=== PATIENT | male | born 1960 | race Hispanic/Latino ===

== ENCOUNTER 2020-09-04 07:41 | Inpatient (IN) | payer BC, OTHER ==
[2020-09-04] MEDS ORDERED: ACETAMINOPHEN 325 MG TABLET ONE (09:19)
[2020-09-04] MEDS ORDERED: LEVALBUTEROL 1.25 MG/3 ML NEB ONE (09:19)
[2020-09-04] MEDS ORDERED: dexAMETHasone 10 MG/ML VIAL ONE (09:19)
[2020-09-04 09:27] LABS: Absolute Lymphocytes (CBC) 0.3 K/uL (0.7-4.9); Basophils % 0.4 % (0-1.3); Hematocrit 44.1 % (39.6-49.0); Lymphocytes % 13.4 % (15.3-44.8); MPV 9.7 fL (7.6-11.3); RBC Red Blood Cell Count 4.76 M/uL (4.33-5.43)
[2020-09-04] MEDS ORDERED: IVERMECTIN 3 MG TABLET PO ONE (09:30)
[2020-09-04 09:34] LABS: Protime INR 1.12
[2020-09-04 09:39] LABS: Bilirubin Direct 0.5 mg/dL (0-0.2); C-Reactive Protein 73.9 mg/L (<3.00); Potassium 4.1 mmol/L (3.5-5.1); Protein, Total 7.4 g/dL (6.4-8.2); Troponin (Emerg Dept Use Only) 0.02 ng/mL (0.0-0.045)
[2020-09-04 10:11] LABS: Urine Blood TRACE (NEG); Urine Glucose NEGATIVE (NEG); Urine Protein 3+ (NEG); Urine Specific Gravity >1.030 (1.005-1.030)
[2020-09-04 10:24] LABS: Urine Bacteria 20-50 /HPF (NONE SEEN); Urine RBC <5 /HPF (NONE SEEN)
[2020-09-04 10:26] LABS: Blood Morphology Comment NOT SEEN (NOT SEEN); Platelet Estimate DECR
[2020-09-04 10:27] LABS: White Blood Cell Scan OK (OK)
[2020-09-04] MEDS ORDERED: CEFTRIAXONE/SWI 1gm 1 GM/10 ML SYR ONE (10:28)
--- NOTE | 2020-09-04 11:51 | RAD REPORT ---
EXAM DESCRIPTION: Anabelle Single View09/04/2020 10:22 am CLINICAL HISTORY: Cough COMPARISON: none FINDINGS: Moderate left and [id number] right pulmonary opacities The heart is normal size IMPRESSION: Bilateral pulmonary opacities probably pneumonia
--- NOTE | 2020-09-04 12:04 | ER ---
Nurse's Notes [facility] Name: Campbell Cox Sr Age: 60 yrs Sex: Male : 1960 Arrival Date: 09/04/2020 Time: 07:48 Bed 25 Private MD: Diagnosis: SARS-associated coronavirus as the cause of diseases classified elsewhere;Acute respiratory failure with hypoxia;Coronavirus infection, unspecified Presentation: 09/04 08:05 Chief complaint: Patient states: tested positive for COVID-19 08/27/20. Reports aa5 increased SOB, headache,and cough. Coronavirus screen: cough unrelated to allergies, headache, shortness of breath. Ebola Screen: Patient negative for fever greater than or equal to 101.5 degrees Fahrenheit, and additional compatible Ebola Virus Disease symptoms. Initial Sepsis Screen: Does the patient meet any 2 criteria? No. Patient's initial sepsis screen is negative. Does the patient have a suspected source of infection? Yes:. Risk Assessment: Do you want to hurt yourself or someone else? Patient reports no desire to harm self or others. Onset of symptoms was August 2020. 08:05 Method Of Arrival: Ambulatory aa5 08:05 Acuity: EUNICE 2 aa5 Triage Assessment: 08:15 Respiratory: the patient has mild shortness of breath. rb3 08:15 Respiratory: Onset: The symptoms/episode began/occurred x 1 week ago. rb3 Historical: - Allergies: 08:07 No Known Allergies; aa5 - PMHx: 08:07 Diabetes - NIDDM; aa5 - PSHx: 08:07 Lithotripsy; aa5 - Immunization history:: Adult Immunizations unknown. - Social history:: Smoking status: Patient denies any tobacco usage or history of. Screenin:15 Abuse screen: Denies threats or abuse. Nutritional screening: No deficits noted. rb3 Tuberculosis screening: No symptoms or risk factors identified. Fall Risk None identified. Assessment: 08:15 General: Appears in no apparent distress. comfortable, Behavior is calm, cooperative. rb3 Pain: Complains of pain in chest Pain currently is 7 out of 10 on a pain scale. Neuro: Level of Consciousness is awake, alert, obeys commands, Oriented to person, place, time, situation. Cardiovascular: Patient's skin is warm and dry. Respiratory: Reports shortness of breath cough that is Airway is patent Respiratory effort is even, unlabored, Respiratory pattern is regular, symmetrical. GI: Reports nausea. : No signs and/or symptoms were reported regarding the genitourinary system. 08:15 General: Reports fever for. rb3 09:15 Reassessment: Patient appears in no apparent distress at this time. No changes from rb3 previously documented assessment. 10:13 Reassessment: Patient appears in no apparent distress at this time. Patient and/or rb3 family updated on plan of care and expected duration. Pain level reassessed. Patient is alert, oriented x 3, equal unlabored respirations, skin warm/dry/pink. 11:11 Reassessment: Patient appears in no apparent distress at this time. No changes from rb3 previously documented assessment. 12:00 Reassessment: Patient appears in no apparent distress at this time. Patient and/or rb3 family updated on plan of care and expected duration. Pain level reassessed. Patient is alert, oriented x 3, equal unlabored respirations, skin warm/dry/pink. 13:00 Reassessment: Patient appears in no apparent distress at this time. No changes from rb3 previously documented assessment. 14:00 Reassessment: Patient appears in no apparent distress at this time. Patient and/or rb3 family updated on plan of care and expected duration. Pain level reassessed. Patient is alert, oriented x 3, equal unlabored respirations, skin warm/dry/pink. Pt. is watching TV. 15:00 Reassessment: Patient appears in no apparent distress at this time. No changes from rb3 previously documented assessment. 15:48 Reassessment: Gave report to JOSE RAFAEL Hatch. Information from the SBAR was given. All rb3 questions asked and answered. 16:00 Reassessment: Patient appears in no apparent distress at this time. Patient and/or rb3 family updated on plan of care and expected duration. Pain level reassessed. Patient is alert, oriented x 3, equal unlabored respirations, skin warm/dry/pink. Vital Signs: 08:05 BP 110 / 70; Pulse 85; Resp 20 S; Temp 100.1(O); Pulse Ox 87% on R/A; Weight 78.47 kg aa5 (R); Height 6 ft. 0 in. (182.88 cm) (R); 09:00 BP 122 / 70; Pulse 75; Resp 20; Pulse Ox 92% on 3 lpm NC; rb3 10:05 BP 124 / 67; Pulse 93; Resp 36; Pulse Ox 93% on 3 lpm NC; mh5 10:12 Temp 99(O); rb3 11:00 BP 120 / 70; Pulse 83; Resp 23; Pulse Ox 93% ; rb3 12:00 BP 115 / 68; Pulse 76; Resp 29; Pulse Ox 94% on 3 lpm NC; rb3 13:00 BP 118 / 70; Pulse 75; Resp 33; Pulse Ox 95% on 3 lpm NC; rb3 14:00 BP 120 / 70; Pulse 77; Resp 21; Pulse Ox 94% on 3 lpm NC; rb3 15:00 BP 117 / 66; Pulse 70; Resp 26; Pulse Ox 94% on 3 lpm NC; rb3 15:45 BP 119 / 75; Pulse 84; Resp 26; Temp 98.4; Pulse Ox 94% on 3 lpm NC; rb3 08:05 Body Mass Index 23.46 (78.47 kg, 182.88 cm) aa5 ED Course: 07:48 Patient arrived in ED. ag5 08:05 Arm band placed on. aa5 08:07 Triage completed. aa5 08:14 Douglas Cassidy MD is Attending Physician. kdr 08:15 Patient has correct armband on for positive identification. Bed in low position. Call rb3 light in reach. Side rails up X 1. Pulse ox on. NIBP on. 08:23 Debbie Sanchez, RN is Primary Nurse. rb3 09:15 Initial lab(s) drawn, by hi, sent to lab. First set of blood cultures drawn by me, [facility] Second set of blood cultures drawn by ED staff. 09:25 Ferritin Sent. 5 09:25 D-Dimer Sent. 5 09:25 C-Reactive Protein Sent. 5 09:25 CBC with Automated Diff Sent. 5 09:25 Basic Metabolic Panel Sent. 5 09:25 Blood Culture Sent. 5 09:26 Inserted saline lock: 20 gauge in left antecubital area, using aseptic technique. Blood [facility] collected. 09:29 Flu and/or RSV swab sent to lab. Strep swab sent to lab. 5 09:30 Pillow given. monitoring tech on. Pulse ox on. NIBP on. 5 09:31 Blood Culture Adult (2) Sent. 5 09: BMP Sent. 5 : C-Reactive Protein Sent. 5 :32 CBC with Diff Sent. 5 09:32 D-Dimer Sent. 5 09:32 Ferritin Sent. [facility] 10:03 Urine Microscopic Only Sent. [facility] 10:04 Urine collected: clean catch specimen, tea colored, EKG done, by ED staff, reviewed by 5 Douglas Cassidy MD. 10:19 X-ray completed. Portable x-ray completed in exam room. Patient tolerated procedure [facility] well. 10:21 CXR XRAY In Process Unspecified. EDMS 12:03 Sathya Mejia MD is Hospitalizing Provider. kdr 16:00 No provider procedures requiring assistance completed. Patient admitted, IV remains in rb3 place. Administered Medications: 09:10 Drug: Tylenol 650 mg Route: PO; rb3 10:12 Follow up: Response: No adverse reaction; Temperature is decreased rb3 09:10 Drug: Decadron - Dexamethasone 6 mg Route: IVP; Site: left antecubital; rb3 09:25 Follow up: Response: No adverse reaction rb3 09:10 Drug: Xopenex (3) 1.25 mg Route: Inhalation; rb3 10:15 Not Given (Changed order to IVP): Rocephin - (cefTRIAXone) 1 grams IVPB once over 30 rb3 mins; (mix in 50 mL NS) 10:25 Drug: Ivermectin 200 mcg/kg Route: PO; rb3 11:05 Follow up: Response: No adverse reaction rb3 10:25 Drug: Rocephin 1 grams Route: IV; Rate: calculated rate; Site: left antecubital; rb3 10:40 Follow up: Response: No adverse reaction; IV Status: Completed infusion rb3 Outcome: 12:04 Decision to Hospitalize by Provider. kdr 16:00 Admitted to Tele accompanied by tech, via stretcher, room 430, with oxygen, with chart, rb3 Report called to JOSE RAFAEL Hatch 16:00 Condition: stable 16:00 Instructed on the need for admit. 16:05 Patient left the ED. rb3 Signatures: Dispatcher [employer] EDNE Douglas Cassidy MD MD [facility] Dominique Monzon [facility] Ivone Ramos RN RN aa5 Gabriela Simental 5 Jolene Hicks [facility] Debbie Sanchez RN RN rb3 Corrections: (The following items were deleted from the chart) 08:29 08:05 Acuity: EUNICE 3 aa5 aa5 16:38 16:37 Patient left the ED. rb3 rb3
--- NOTE | 2020-09-04 12:04 | EDPHYS ---
Physician Documentation [facility] Name: Campbell Cox Sr Age: 60 yrs Sex: Male : 1960 Arrival Date: 09/04/2020 Time: 07:48 Bed 25 Private MD: ED Physician Douglas Cassidy HPI: 09/04 09:00 This 60 yrs old Male presents to ER via Ambulatory with complaints of kdr Breathing Difficulty, Headache. 09:00 The patient has shortness of breath at rest, with light activity. Onset: The kdr symptoms/episode began/occurred gradually, 10 day(s) ago. Duration: The symptoms are continuous, and are steadily getting worse. The patient's shortness of breath is aggravated by coughing, exertion, light activity, talking, walking. Associated signs and symptoms: Pertinent positives: productive cough, Pertinent negatives: chest pain, diaphoresis, dizziness, fever, hemoptysis, loss of consciousness, nausea, numbness in extremities, visual changes. Severity of symptoms: At their worst the symptoms were mild in the emergency department the symptoms are unchanged. The patient has not experienced similar symptoms in the past. The patient has been recently seen by a physician: the patient's primary care provider. The patient has been feeling more SOB over the last few days. Historical: - Allergies: 08:07 No Known Allergies; aa5 - PMHx: 08:07 Diabetes - NIDDM; aa5 - PSHx: 08:07 Lithotripsy; aa5 - Immunization history:: Adult Immunizations unknown. - Social history:: Smoking status: Patient denies any tobacco usage or history of. ROS: 09:07 Constitutional: Negative for fever, chills, and weight loss, Eyes: Negative for injury, kdr pain, redness, and discharge, ENT: Negative for injury, pain, and discharge, Neck: Negative for injury, pain, and swelling, Cardiovascular: Negative for chest pain, palpitations, and edema, Abdomen/GI: Negative for abdominal pain, nausea, vomiting, diarrhea, and constipation, Back: Negative for injury and pain, : Negative for injury, bleeding, discharge, and swelling, MS/Extremity: Negative for injury and deformity, Skin: Negative for injury, rash, and discoloration, Neuro: Negative for headache, weakness, numbness, tingling, and seizure activity. Psych: Negative for depression, anxiety, suicide ideation, homicidal ideation, and hallucinations, Allergy/Immunology: Negative for hives, rash, and allergies, Endocrine: Negative for neck swelling, polydipsia, polyuria, polyphagia, and marked weight changes, Hematologic/Lymphatic: Negative for swollen nodes, abnormal bleeding, and unusual bruising. 09:07 Respiratory: Positive for cough, with no reported sputum, dyspnea on exertion, shortness of breath, at rest. wheezing, expiratory. Exam: 09:07 Constitutional: This is a well developed, well nourished patient who is awake, alert, kdr and in no acute distress. Head/Face: Normocephalic, atraumatic. Eyes: Pupils equal round and reactive to light, extra-ocular motions intact. Lids and lashes normal. Conjunctiva and sclera are non-icteric and not injected. Cornea within normal limits. Periorbital areas with no swelling, redness, or edema. Neck: Trachea midline, no thyromegaly or masses palpated, and no cervical lymphadenopathy. Supple, full range of motion without nuchal rigidity, or vertebral point tenderness. No Meningismus. Chest/axilla: Normal chest wall appearance and motion. Nontender with no deformity. No lesions are appreciated. Cardiovascular: Regular rate and rhythm with a normal S1 and S2. No gallops, murmurs, or rubs. Normal PMI, no JVD. No pulse deficits. Abdomen/GI: Soft, non-tender, with normal bowel sounds. No distension or tympany. No guarding or rebound. No evidence of tenderness throughout. Back: No spinal tenderness. No costovertebral tenderness. Full range of motion. Skin: Warm, dry with normal turgor. Normal color with no rashes, no lesions, and no evidence of cellulitis. MS/ Extremity: Pulses equal, no cyanosis. Neurovascular intact. Full, normal range of motion. Neuro: Awake and alert, GCS 15, oriented to person, place, time, and situation. Cranial nerves II-XII grossly intact. Motor strength 5/5 in all extremities. Sensory grossly intact. Cerebellar exam normal. Normal gait. Psych: Awake, alert, with orientation to person, place and time. Behavior, mood, and affect are within normal limits. 09:07 Respiratory: the patient does not display signs of respiratory distress, Respirations: normal, Breath sounds: rales, that are mild, wheezing: expiratory that is mild. 10:16 ECG was reviewed by the Attending Physician. kdr Vital Signs: 08:05 BP 110 / 70; Pulse 85; Resp 20 S; Temp 100.1(O); Pulse Ox 87% on R/A; Weight 78.47 kg aa5 (R); Height 6 ft. 0 in. (182.88 cm) (R); 09:00 BP 122 / 70; Pulse 75; Resp 20; Pulse Ox 92% on 3 lpm NC; rb3 10:05 BP 124 / 67; Pulse 93; Resp 36; Pulse Ox 93% on 3 lpm NC; mh5 10:12 Temp 99(O); rb3 11:00 BP 120 / 70; Pulse 83; Resp 23; Pulse Ox 93% ; rb3 12:00 BP 115 / 68; Pulse 76; Resp 29; Pulse Ox 94% on 3 lpm NC; rb3 13:00 BP 118 / 70; Pulse 75; Resp 33; Pulse Ox 95% on 3 lpm NC; rb3 14:00 BP 120 / 70; Pulse 77; Resp 21; Pulse Ox 94% on 3 lpm NC; rb3 15:00 BP 117 / 66; Pulse 70; Resp 26; Pulse Ox 94% on 3 lpm NC; rb3 15:45 BP 119 / 75; Pulse 84; Resp 26; Temp 98.4; Pulse Ox 94% on 3 lpm NC; rb3 08:05 Body Mass Index 23.46 (78.47 kg, 182.88 cm) aa5 MDM: 09:07 Data reviewed: vital signs, nurses notes, lab test result(s), radiologic studies. kdr Counseling: I had a detailed discussion with the patient and/or guardian regarding: the historical points, exam findings, and any diagnostic results supporting the discharge/admit diagnosis, lab results, radiology results. 12:04 Patient medically screened. kdr 09/04 08:26 Order name: Blood Culture Adult (2) kdr 09/04 08:26 Order name: BMP kdr 09/04 08:26 Order name: C-Reactive Protein kdr 09/04 08:26 Order name: CBC with Diff kdr 09/04 08:26 Order name: D-Dimer kdr 09/04 08:26 Order name: Ferritin kdr 09/04 08:26 Order name: Flu; Complete Time: 09:54 kdr 09/04 08:26 Order name: Lactate; Complete Time: 09:54 kdr 09/04 08:26 Order name: LFT's; Complete Time: 09:54 kdr 09/04 08:26 Order name: Lipase; Complete Time: 09:54 kdr 09/04 08:26 Order name: Procalcitonin; Complete Time: 12:02 kdr 09/04 08:26 Order name: PT-INR; Complete Time: 09:54 kdr 09/04 08:26 Order name: Ptt, Activated; Complete Time: 09:54 kdr 09/04 08:26 Order name: Strep; Complete Time: 09:54 kdr 09/04 08:26 Order name: Troponin (emerg Dept Use Only); Complete Time: 09:54 kdr 09/04 08:26 Order name: Urine Microscopic Only; Complete Time: 12:02 kdr 09/04 08:26 Order name: Blood Culture EDMS 09/04 08:26 Order name: Basic Metabolic Panel; Complete Time: 09:54 EDMS 09/04 08:26 Order name: C-Reactive Protein; Complete Time: 09:54 EDMS 09/04 08:26 Order name: CBC with Automated Diff; Complete Time: 12:02 EDMS 09/04 08:26 Order name: D-Dimer; Complete Time: 09:54 EDMS 09/04 08:27 Order name: Ferritin; Complete Time: 09:54 EDMS 09/04 09:31 Order name: CBC Smear Scan; Complete Time: 12:02 EDMS 09/04 09:44 Order name: Throat Culture EDMS 09/04 10:05 Order name: Urine Dipstick--Ancillary (enter results); Complete Time: 12:02 em1 09/04 10:25 Order name: Urine Culture EDMS 09/04 12:17 Order name: C-Reactive Protein EDMS 09/04 12:17 Order name: C-Reactive Protein EDMS 09/04 12:17 Order name: CBC with Automated Diff EDMS 09/04 08:26 Order name: CXR XRAY; Complete Time: 12:02 kdr 09/04 08:26 Order name: EKG; Complete Time: 08:27 kdr 09/04 08:26 Order name: Cardiac monitoring; Complete Time: 09:26 kdr 09/04 08:26 Order name: Droplet/Contact Precautions; Complete Time: 09:26 kdr 09/04 08:26 Order name: EKG - Nurse/Tech; Complete Time: 10:03 kdr 09/04 08:26 Order name: Dixon; Complete Time: 10:15 kdr 09/04 08:26 Order name: IV Start; Complete Time: 09:26 kdr 09/04 08:26 Order name: Labs collected and sent; Complete Time: 09: kdr 09/04 08:26 Order name: O2 Per Protocol; Complete Time: 09:32 kdr 09/04 08:26 Order name: O2 Sat Monitoring; Complete Time: 09:33 kdr 09/04 12:17 Order name: CONS Pharmacy Consult [facility] 09/04 12:17 Order name: CONS Physician Consult [facility] 09/04 12:17 Order name: CBC with Automated Diff [facility] 09/04 12:17 Order name: Comprehensive Metabolic Panel [facility] 09/04 12:17 Order name: Comprehensive Metabolic Panel [facility] 09/04 12:17 Order name: D-Dimer [facility] 09/04 12:17 Order name: D-Dimer [facility] 09/04 12:17 Order name: Ferritin [facility] 09/04 12:17 Order name: Ferritin [facility] 09/04 12:17 Order name: Lipid Profile [facility] 09/04 12:17 Order name: Lipid Profile [facility] 09/04 12:17 Order name: Protime (+INR) [facility] 09/04 12:17 Order name: Protime (+INR) [facility] 09/04 12:17 Order name: PTT, Activated Partial Thromb [facility] 09/04 12:17 Order name: PTT, Activated Partial Thromb [facility] 09/04 12:55 Order name: Lactate Sepsis 2 HR Follow-up [facility] 09/04 08:26 Order name: Urine Dipstick-Ancillary (obtain specimen); Complete Time: 10:03 kdr EC:16 Rate is 90 beats/min. Rhythm is regular, Sinus Rhythm with No ectopy, Right bundle kdr branch block. SD interval is normal. QRS interval is normal. QT interval is normal. Clinical impression: NSR w/ Non-specific ST/T Changes. Administered Medications: 09:10 Drug: Tylenol 650 mg Route: PO; rb3 10:12 Follow up: Response: No adverse reaction; Temperature is decreased rb3 09:10 Drug: Decadron - Dexamethasone 6 mg Route: IVP; Site: left antecubital; rb3 09:25 Follow up: Response: No adverse reaction rb3 09:10 Drug: Xopenex (3) 1.25 mg Route: Inhalation; rb3 10:15 Not Given (Changed order to IVP): Rocephin - (cefTRIAXone) 1 grams IVPB once over 30 rb3 mins; (mix in 50 mL NS) 10:25 Drug: Ivermectin 200 mcg/kg Route: PO; rb3 11:05 Follow up: Response: No adverse reaction rb3 10:25 Drug: Rocephin 1 grams Route: IV; Rate: calculated rate; Site: left antecubital; rb3 10:40 Follow up: Response: No adverse reaction; IV Status: Completed infusion rb3 Disposition: 09/04/20 12:04 Hospitalization ordered by Sathya Mejia for Inpatient Admission. Preliminary diagnosis are SARS-associated coronavirus as the cause of diseases classified elsewhere, Acute respiratory failure with hypoxia, Coronavirus infection, unspecified. - Bed requested for Telemetry/MedSurg (Inpatient). - Status is Inpatient Admission. rb3 - Condition is Fair. - Problem is an ongoing problem. - Symptoms have improved. Signatures: Dispatcher [employer] Ginger Silver RN RN dw Douglas Cassidy MD MD [facility] Ivone Ramos RN RN aa5 Debbie Sanchez, JOSE RAFAEL RN rb3 Corrections: (The following items were deleted from the chart) 10:17 10:17 Dixon ordered. rb3 rb3 15:34 12:04 Hospitalization Ordered by Sathya Mejia MD for Inpatient Admission. Preliminary dw diagnosis is SARS-associated coronavirus as the cause of diseases classified elsewhere; Acute respiratory failure with hypoxia; Coronavirus infection, unspecified. Bed requested for Telemetry/MedSurg (Inpatient). Status is Inpatient Admission. Condition is Fair. Problem is an ongoing problem. Symptoms have improved. kdr 16:37 15:34 09/04/2020 12:04 Hospitalization Ordered by Sathya Mejia MD for Inpatient rb3 Admission. Preliminary diagnosis is SARS-associated coronavirus as the cause of diseases classified elsewhere; Acute respiratory failure with hypoxia; Coronavirus infection, unspecified. Bed requested for Telemetry/MedSurg (Inpatient). Status is Inpatient Admission. Condition is Fair. Problem is an ongoing problem. Symptoms have improved. dw
[2020-09-04] MEDS ORDERED: ONDANSETRON 4 MG/2 ML VIAL IV PRN (12:09)
[2020-09-04] MEDS ORDERED: MORPHINE 2 MG/ML SYR IV PRN (12:09)
--- NOTE | 2020-09-04 12:32 | P.CNS ---
Date of Consult: 09/04/20 Reason for Consult: Respiratory failure from aponte virus Chief Complaint: Shortness of breath History of Present Illness: Patient is 60 years of age presented with shortness of breath symptoms began 10 days ago began in progressively worse complaining of cough shortness of breath on mild exertion as found to be hypoxic Allergies No Known Allergies Allergy (Verified 03/12/14 12:24) Home Medications: Glimepiride 1 tab PO BID 09/04/20 Guaifen W/Codeine Syrup [ROBITUSSIN A-C Syrup*] 5 ml PO Q6H PRN 09/04/20 Loratadine [Claritin] 10 mg PO DAILY 09/04/20 Metformin HCl [Glucophage*] 1 tab PO BID 09/04/20 Omeprazole 1 tab PO DAILY 09/04/20 - Past Medical/Surgical History -: Diabetes - Family History Father Family History: Reviewed- Non-Contributory Review of Systems 10-point ROS is otherwise unremarkable General: Fever, Weakness Respiratory: Shortness of Breath Physical Examination General: Alert, Oriented x3, Moderate distress Respiratory: Clear to auscultation bilaterally, Diminished Cardiovascular: No edema, Regular rate/rhythm Laboratory Data (last 24 hrs) 09/04/20 09:00: PT 13.2 H, INR 1.12, APTT 29.0 09/04/20 09:00: WBC 2.10 L, Hgb 14.8, Hct 44.1, Plt Count 51 L 09/04/20 09:00: Sodium 137, Potassium 4.1, BUN 18, Creatinine 0.87, Glucose 104, Total Bilirubin 1.0, AST 54 H, ALT 33, Alkaline Phosphatase 79, Lipase 70 L - Problems (1) Pneumonia due to 2019 novel coronavirus Current Visit: Yes Status: Acute Plan: Patient is 60 years of age admitted with shortness of breath hypoxemia is pneumonia due to aponte virus chest x-ray shows minimal interstitial changes labs all reviewed ferritin is elevated agree with anticoagulation steroids plan to set up for home oxygen may be discharged tomorrow
[2020-09-04] MEDS: FAMOTIDINE 20 MG/2 ML VIAL IV SCH (20:32)
[2020-09-04] MEDS: APIXABAN 5 MG TABLET PO SCH (20:32)
[2020-09-04] MEDS: METHYLPREDNISOLONE 40 MG INJ IV SCH (20:32)
[2020-09-05 04:48] LABS: Absolute Lymphocytes (CBC) 0.4 K/uL (0.7-4.9); Basophils % 0.1 % (0-1.3); Lymphocytes % 12.4 % (15.3-44.8); MPV 10.5 fL (7.6-11.3); RBC Red Blood Cell Count 4.57 M/uL (4.33-5.43)
[2020-09-05 04:51] LABS: Protime INR 1.22
[2020-09-05 05:09] LABS: Albumin 2.7 g/dL (3.4-5.0); Bilirubin Total 0.7 mg/dL (0.2-1.0); C-Reactive Protein 66.7 mg/L (<3.00); Ferritin 860.8 ng/mL (26-388); Potassium 4.2 mmol/L (3.5-5.1); Protein, Total 7.1 g/dL (6.4-8.2)
--- NOTE | 2020-09-05 07:49 | P.HP ---
Certification for Inpatient Patient admitted to: Inpatient With expected LOS: >2 Midnights Patient will require the following post-hospital care: None Practitioner: I am a practitioner with admitting privileges, knowledge of patient current condition, hospital course, and medical plan of care. Services: Services provided to patient in accordance with Admission requirements found in Title 42 Section 412.3 of the Code of Federal Regulations Patient History Date of Service: 09/04/20 Reason for admission: Shortness of breath History of Present Illness: Patient is a 60-year-old gentleman who came to the hospital with difficulty breathing. Patient was short of breath and having a persistent cough. Patient has multiple family members who have been diagnosed with COVID-19 pneumonia. Patient was concerned so he came to the hospital. Patient oxygen saturations were 82% on room air. Patient was tested and patient results showed he had COVID-19. Decision was made to admit the patient to the hospital for further evaluation. Patient will get started on oxygen along with IV steroids. Will consider Remdesivir, but we really have not had any significant improvement with this medication alone. Will continue monitoring closely in the hospital stay. Allergies No Known Allergies Allergy (Verified 03/12/14 12:24) Home Medications: Glimepiride 1 tab PO BID 09/04/20 Guaifen W/Codeine Syrup [ROBITUSSIN A-C Syrup*] 5 ml PO Q6H PRN 09/04/20 Loratadine [Claritin] 10 mg PO DAILY 09/04/20 Metformin HCl [Glucophage*] 1 tab PO BID 09/04/20 Omeprazole 1 tab PO DAILY 09/04/20 - Past Medical/Surgical History Has patient received pneumonia vaccine in the past: No Diabetic: Yes -: Type 2 diabetes -: lithotripsy -: GERD Past Surgical History: Patient denies surgical history - Family History Father Family History: Reviewed- Non-Contributory - Social History Smoking Status: Unknown if ever smoked Alcohol use: No CD- Drugs: No Review of Systems 10-point ROS is otherwise unremarkable Physical Examination - Vital Signs Temperature: 98.1 F Blood Pressure: 105/56 Pulse: 71 Respirations: 24 Pulse Ox (%): 88 - Physical Exam General: Alert, In no apparent distress, Oriented x3 HEENT: Atraumatic, Normocephalic Respiratory: Clear to auscultation bilaterally, Normal air movement Cardiovascular: Regular rate/rhythm, Normal S1 S2 Gastrointestinal: Normal bowel sounds, Soft and benign, Non-distended Musculoskeletal: No clubbing, No swelling Integumentary: No rashes Neurological: Normal gait, Normal strength at 5/5 x4 extr, Normal tone, Sensation intact, Cranial nerves 3-12 intact - Studies Laboratory Data (last 24 hrs) 09/04/20 09:00: PT 13.2 H, INR 1.12, APTT 29.0 09/04/20 09:00: WBC 2.10 L, Hgb 14.8, Hct 44.1, Plt Count 51 L 09/04/20 09:00: Sodium 137, Potassium 4.1, BUN 18, Creatinine 0.87, Glucose 104, Total Bilirubin 1.0, AST 54 H, ALT 33, Alkaline Phosphatase 79, Lipase 70 L Microbiology Data (last 24 hrs): 09/04/20 09:00 Nasopharnyx Influenza Type A Antigen Screen - Final 09/04/20 09:00 Nasopharnyx Influenza Type B Antigen Screen - Final 09/04/20 09:00 Throat Group A Streptococcus Rapid Screen - Final Assessment & Plan - Problems (Diagnosis) (1) Pneumonia due to 2019 novel coronavirus Current Visit: Yes Status: Acute - Plan 1. Continue with IV steroids 2. COVID-19 pneumonia supportive care 3. Repeat chest x-ray is symptoms are progressively worsening 4. O2 per protocol 5. Pulmonary consultation 6. Continue with albuterol inhaler therapy and anti coagulation 7. O2 per protocol 8. Monitor LFTs 9. GI and DVT prophylaxis Discharge Plan: Home Plan to discharge in: Greater than 2 days - Advance Directives Does patient have a Living Will: No Does patient have a Durable POA for Healthcare: No - Code Status/Comfort Care Code Status Assessed: Yes Code Status: Full Code Critical Care: No Time Spent Managing PTS Care (In Minutes): 45
--- NOTE | 2020-09-05 07:52 | EKG ---
Test Date: 2020-09-04 Test Time: 09:51:22 Bodywork Therapist: BOUCHRA MEASUREMENT RESULTS: Intervals: Rate: 90 IA: 154 QRSD: 128 QT: 380 QTc: 464 Sabael: P: 45 IA: 154 QRS: 30 T: 47 INTERPRETIVE STATEMENTS: Normal sinus rhythm Right bundle branch block Abnormal ECG Compared to ECG 03/12/2014 12:34:33 Sinus bradycardia no longer present Electronically Signed On 09-05-20 07:49:33 ECHOCARDIOGRAPH TECH by Sharif Najera
[2020-09-05] MEDS: FAMOTIDINE 20 MG/2 ML VIAL IV SCH (09:04)
[2020-09-05] MEDS: APIXABAN 5 MG TABLET PO SCH ×2 (09:04→20:20)
[2020-09-05] MEDS: METHYLPREDNISOLONE 40 MG INJ IV SCH ×2 (09:04→20:20)
[2020-09-05] MEDS: VANCOMYCIN 1.5 GM in NA CHLORIDE 0.9% 500 ML IVPB SCH ×2 (12:24→23:03)
--- NOTE | 2020-09-05 12:58 | P.PN ---
Subjective Date of Service: 09/05/20 Chief Complaint: Cerda virus pneumonia Subjective: Improving (Patient is improving still hypoxic no other complaints) Review of Systems General: Weakness Respiratory: Shortness of Breath Physical Examination - Vital Signs Temperature: 98.7 F Blood Pressure: 111/59 Pulse: 68 Respirations: 20 Pulse Ox (%): 91 - Studies Microbiology Data (last 24 hrs): 09/04/20 09:00 Nasopharnyx Influenza Type A Antigen Screen - Final 09/04/20 09:00 Nasopharnyx Influenza Type B Antigen Screen - Final 09/04/20 09:00 Throat Group A Streptococcus Rapid Screen - Final Assessment & Plan - Problems (Diagnosis) (1) Pneumonia due to 2019 novel coronavirus Current Visit: Yes Status: Acute Plan: Patient admitted with pneumonia due to cerda virus still requiring high concentrations of oxygen ferritin level is declining blood pressure is stable blood cultures positive for Gram positive Weir and clusters pro calcitonin is mildly elevated white count is low id on the organism is pending no change in present treatment discharge pending on blood cultures
[2020-09-05] MEDS: FAMOTIDINE 20 MG TAB PO SCH (20:20)
[2020-09-06] MEDS: METHYLPREDNISOLONE 40 MG INJ IV SCH ×2 (07:50→20:13)
[2020-09-06] MEDS: APIXABAN 5 MG TABLET PO SCH ×2 (07:51→20:13)
[2020-09-06] MEDS: FAMOTIDINE 20 MG TAB PO SCH ×2 (09:43→20:13)
[2020-09-06] MEDS: VANCOMYCIN 1.5 GM in NA CHLORIDE 0.9% 500 ML IVPB SCH (11:23)
[2020-09-06] MEDS: ACETAMINOPHEN 500 MG TAB PO PRN (11:31)
[2020-09-06] MEDS ORDERED: NA CHLORIDE 0.9% 250 ML IV ONE (14:00)
[2020-09-06] MEDS: GUAIFENESIN/CODEINE 5ML UCUP PO PRN (20:30)
[2020-09-07] MEDS: VANCOMYCIN 1.5 GM in NA CHLORIDE 0.9% 500 ML IVPB SCH (00:22)
[2020-09-07] MEDS: GUAIFENESIN/CODEINE 5ML UCUP PO PRN ×3 (02:57→20:15)
[2020-09-07] MEDS: FAMOTIDINE 20 MG TAB PO SCH ×2 (07:53→20:05)
[2020-09-07] MEDS: APIXABAN 5 MG TABLET PO SCH ×2 (07:53→20:05)
[2020-09-07] MEDS: METHYLPREDNISOLONE 40 MG INJ IV SCH ×2 (07:53→20:05)
[2020-09-07] MEDS ORDERED: VANCOMYCIN 1.75 GM in NA CHLORIDE 0.9% 500 ML IVPB SCH (12:00)
--- NOTE | 2020-09-07 15:47 | P.PN ---
Subjective Date of Service: 09/05/20 Subjective: No new changes, No C/O voiced, Improving Review of Systems 10-point ROS is otherwise unremarkable Physical Examination - Vital Signs Temperature: 97.6 F Blood Pressure: 114/57 Pulse: 64 Respirations: 36 Pulse Ox (%): 84 - Physical Exam General: Alert, In no apparent distress, Oriented x3 Respiratory: Diminished, Crackles/rales Cardiovascular: Regular rate/rhythm, Normal S1 S2, No murmurs Gastrointestinal: Normal bowel sounds, Soft and benign, Non-distended, No tenderness Musculoskeletal: No clubbing, No swelling, No tenderness Neurological: Sensation intact, Cranial nerves 3-12 intact - Studies Medications List Reviewed: Yes Assessment & Plan - Problems (Diagnosis) (1) Pneumonia due to 2019 novel coronavirus Current Visit: Yes Status: Acute - Plan Continue with plan of care as mentioned below 1. Continue with IV steroids 2. Wean off the O2 on patient 3. Repeat chest x-ray 4. O2 per protocol 5. Pulmonary consultation appreciated 6. Continue with albuterol inhaler therapy and anticoagulation 7. Monitor LFTs 8. GI and DVT prophylaxis Discharge Plan: Home Plan to discharge in: Greater than 2 days - Advance Directives Does patient have a Living Will: No Does patient have a Durable POA for Healthcare: No - Code Status/Comfort Care Code Status: Full Code Critical Care: No Time Spent Managing PTS Care (In Minutes): 30
--- NOTE | 2020-09-07 15:50 | P.PN ---
Date of Service: 09/06/20 Subjective Subjective: Patient doing well with no new complaints. Symptoms continued to improve Review of Systems 10-point ROS is otherwise unremarkable Physical Examination - Vital Signs reviewed - Physical Exam General: Alert, In no apparent distress, Oriented x3 Respiratory: Basilar rhonchis Cardiovascular: Regular rate/rhythm, Normal S1 S2, No murmurs Gastrointestinal: Normal bowel sounds, Soft and benign, Non-distended, No tenderness Musculoskeletal: No clubbing, No swelling, No tenderness Assessment & Plan - Problems (Diagnosis) (1) Pneumonia due to 2019 novel coronavirus Current Visit: Yes Status: Acute - Plan Continue with plan of care as mentioned below 1. Continue with IV steroids 2. Wean off the O2 on patient 3. Continue inhaler therapy 4. O2 per protocol 5. Pulmonary consultation appreciated 6. GI and DVT prophylaxis
--- NOTE | 2020-09-07 15:52 | P.PN ---
Date of Service: 09/07/20 Subjective Subjective: Patient continues to do well with no new complaints. Patient's symptoms are improving. We were able to wean down the oxygen to 5 L. Patient continues to do well. Review of Systems 10-point ROS is otherwise unremarkable Physical Examination - Vital Signs reviewed - Physical Exam General: Alert, In no apparent distress, Oriented x3 Respiratory: Clear bilaterally Cardiovascular: Regular rate/rhythm, Normal S1 S2, No murmurs Gastrointestinal: Normal bowel sounds, Soft and benign, Non-distended, No tenderness Musculoskeletal: No clubbing, No swelling, No tenderness Assessment & Plan - Problems (Diagnosis) (1) Pneumonia due to 2019 novel coronavirus Current Visit: Yes Status: Acute - Plan Continue with plan of care as mentioned below 1. Continue with IV steroids 2. Wean off the O2-currently on 5 L 3. Continue inhaler therapy 4. O2 per protocol 5. Pulmonary consultation appreciated 6. GI and DVT prophylaxis
[2020-09-07] MEDS ORDERED: D50W 25 GM/50 ML SYRINGE IV PRN (16:18)
[2020-09-07] MEDS ORDERED: GLUCAGON 1 MG/VIAL IM PRN (16:18)
[2020-09-07] MEDS: METFORMIN HCL 500 MG TAB PO SCH (16:40)
[2020-09-07] MEDS ORDERED: INSULIN GLARGINE 100 UNITS/ML SQ SCH (17:00)
[2020-09-07] MEDS: GLIMEPIRIDE 2 MG TABLET PO SCH (20:05)
[2020-09-08] MEDS: PANTOPRAZOLE 40MG TABLET PO SCH (05:09)
[2020-09-08] MEDS: FAMOTIDINE 20 MG TAB PO SCH ×2 (07:32→21:14)
[2020-09-08] MEDS: APIXABAN 5 MG TABLET PO SCH ×2 (07:32→21:15)
[2020-09-08] MEDS: METFORMIN HCL 500 MG TAB PO SCH ×2 (07:32→16:01)
[2020-09-08] MEDS: LORATADINE 10 MG TAB PO SCH (07:32)
[2020-09-08] MEDS: METHYLPREDNISOLONE 40 MG INJ IV SCH ×2 (07:33→21:15)
[2020-09-08] MEDS: GLIMEPIRIDE 2 MG TABLET PO SCH ×2 (07:33→21:14)
[2020-09-08] MEDS: GUAIFENESIN/CODEINE 5ML UCUP PO PRN ×3 (08:47→21:14)
[2020-09-08] MEDS ORDERED: Levofloxacin500mg IV 500 MG/100 ML BAG IV SCH (09:00)
[2020-09-08] MEDS: ACETAMINOPHEN 500 MG TAB PO PRN ×2 (11:39→21:14)
[2020-09-08] MEDS ORDERED: Remdesivir 100 MG in NA CHLORIDE 0.9% 250 ML IV SCH (16:40)
--- NOTE | 2020-09-08 16:46 | P.PN ---
Subjective Date of Service: 09/08/20 Chief Complaint: Cerda virus pneumonia Subjective: Other (Patient is slowly improving, on 5 L) Physical Examination - Vital Signs Temperature: 97.8 F Blood Pressure: 125/63 Pulse: 65 Respirations: 22 Pulse Ox (%): 90 - Physical Exam General: Alert HEENT: Atraumatic Neck: Supple Respiratory: Other (Currently on 5 L per nasal cannula) Cardiovascular: Normal pulses, Regular rate/rhythm Gastrointestinal: No guarding Neurological: Normal speech, Normal strength at 5/5 x4 extr, Normal tone, Normal affect - Studies Microbiology Data (last 24 hrs): 09/04/20 09:00 Blood - Blood Aerobic Blood Culture - Final Staph Hominis 09/04/20 09:00 Blood - Blood Blood Culture Gram Stain - Final 09/04/20 09:15 Blood - Blood Aerobic Blood Culture - Final Staph Hominis 09/04/20 09:15 Blood - Blood Blood Culture Gram Stain - Final 09/04/20 09:15 Blood - Blood Anaerobic Blood Culture - Final Staphylococcus Hominis 09/04/20 09:15 Blood - Blood Gram Stain - Final Medications List Reviewed: Yes Assessment & Plan Discharge Plan: Home Plan to discharge in: 72 Hours Physician Review Additional Text: Impression: Acute respiratory failure with hypoxia secondary to bilateral COVID pneumonia complicated with bacteremia, blood culture positive for Staph hominis Diabetes mellitus type 2 Plan: Will change IV Levaquin to oral Cipro after review of sensitivities. Continue IV steroids and supplementation. Discuss initiation of Remdesivir. Will need to monitor liver function tests closely. Recheck chest x-ray tomorrow. Encourage protein, incentive spirometer. Continue DVT prophylaxis. Continue to wean off oxygen. Currently on 5 L per nasal cannula. Will check A1c tomorrow. Continue Accu-Cheks. Consider basal insulin if blood sugar still not well controlled. Anticipate improvement over the next 72 hr. Time Spent Managing Pts Care (In Minutes): 55
[2020-09-08] MEDS: CIPROFLOXACIN HCL 500 MG TAB PO SCH (21:15)
[2020-09-09] MEDS: GUAIFENESIN/CODEINE 5ML UCUP PO PRN ×2 (04:51→21:40)
[2020-09-09 04:53] LABS: C-Reactive Protein 8.73 mg/L (<3.00); Ferritin 587.6 ng/mL (26-388)
[2020-09-09] MEDS: PANTOPRAZOLE 40MG TABLET PO SCH (06:40)
--- NOTE | 2020-09-09 09:10 | RAD REPORT ---
EXAM DESCRIPTION: RAD - Chest Single View - 09/09/2020 4:41 am CLINICAL HISTORY: follow up COVID Chest pain. COMPARISON: Chest Single View dated 09/04/2020; ABDOMEN 1 VIEW KUB dated 04/11/2014; ABDOMEN 1 VIEW KUB dated 03/26/2014; ABDOMEN 1 VIEW KUB dated 03/12/2014 FINDINGS: Portable technique limits examination quality. Moderate bilateral pulmonary opacities, greater on the left, demonstrate moderate worsening since the comparative study. The heart is normal in size. No displaced fractures. IMPRESSION: Moderate worsening of lung aeration is seen, particularly on the left.
[2020-09-09] MEDS: METHYLPREDNISOLONE 40 MG INJ IV SCH ×2 (10:12→21:41)
[2020-09-09] MEDS: CIPROFLOXACIN HCL 500 MG TAB PO SCH ×2 (10:12→21:39)
[2020-09-09] MEDS: FAMOTIDINE 20 MG TAB PO SCH ×2 (10:13→21:39)
[2020-09-09] MEDS: LORATADINE 10 MG TAB PO SCH (10:13)
[2020-09-09] MEDS: METFORMIN HCL 500 MG TAB PO SCH ×2 (10:13→17:14)
[2020-09-09] MEDS: APIXABAN 5 MG TABLET PO SCH ×2 (10:13→21:39)
[2020-09-09] MEDS: GLIMEPIRIDE 2 MG TABLET PO SCH ×2 (10:13→21:39)
--- NOTE | 2020-09-09 12:59 | P.PN ---
Subjective Date of Service: 09/09/20 Chief Complaint: Cerda virus pneumonia Subjective: Other (Patient is slowly improving. Currently on 5 L per nasal cannula.) Physical Examination - Vital Signs Temperature: 97.1 F Blood Pressure: 112/62 Pulse: 59 Respirations: 20 Pulse Ox (%): 94 - Physical Exam General: Alert HEENT: Atraumatic Neck: Supple Respiratory: Other (On 5 L per nasal cannula.) Cardiovascular: Normal pulses Neurological: Normal speech, Normal strength at 5/5 x4 extr, Normal tone, Normal affect - Studies Microbiology Data (last 24 hrs): 09/04/20 09:00 Blood - Blood Aerobic Blood Culture - Final Staph Hominis 09/04/20 09:00 Blood - Blood Blood Culture Gram Stain - Final 09/04/20 09:00 Blood - Blood Anaerobic Blood Culture - Final No growth in 5 days. 09/04/20 09:15 Blood - Blood Aerobic Blood Culture - Final Staph Hominis 09/04/20 09:15 Blood - Blood Blood Culture Gram Stain - Final 09/04/20 09:15 Blood - Blood Anaerobic Blood Culture - Final Staphylococcus Hominis 09/04/20 09:15 Blood - Blood Gram Stain - Final Medications List Reviewed: Yes Assessment & Plan Discharge Plan: Home Plan to discharge in: 72 Hours Physician Review Additional Text: Impression: Acute respiratory failure with hypoxia secondary to bilateral COVID pneumonia complicated with bacteremia, blood culture positive for Staph hominis Diabetes mellitus type 2 Plan: Antibiotics adjusted yesterday due to bacteremia. Continue IV steroids, supplements. Patient not a candidate for Remdesivir. Will teach on incentive spirometer. Continue prone positioning. Encourage ambulation. Respiratory to continue to wean down oxygen. Possible discharge in the next 48 hr if patient only requiring 4 L per nasal cannula without significant desaturation. Will continue to assess. Time Spent Managing Pts Care (In Minutes): 55
[2020-09-09] MEDS: ACETAMINOPHEN 500 MG TAB PO PRN (21:40)
[2020-09-10 04:49] LABS: C-Reactive Protein 5.96 mg/L (<3.00); Ferritin 538.7 ng/mL (26-388)
[2020-09-10] MEDS: PANTOPRAZOLE 40MG TABLET PO SCH (06:38)
[2020-09-10] MEDS: METFORMIN HCL 500 MG TAB PO SCH ×2 (09:50→17:08)
[2020-09-10] MEDS: GUAIFENESIN/CODEINE 5ML UCUP PO PRN ×2 (09:50→20:52)
[2020-09-10] MEDS: GLIMEPIRIDE 2 MG TABLET PO SCH ×2 (09:51→20:56)
[2020-09-10] MEDS: CIPROFLOXACIN HCL 500 MG TAB PO SCH ×2 (09:51→20:36)
[2020-09-10] MEDS: APIXABAN 5 MG TABLET PO SCH ×2 (09:51→20:35)
[2020-09-10] MEDS: LORATADINE 10 MG TAB PO SCH (09:51)
[2020-09-10] MEDS: FAMOTIDINE 20 MG TAB PO SCH ×2 (09:52→20:36)
[2020-09-10] MEDS: METHYLPREDNISOLONE 40 MG INJ IV SCH ×2 (09:52→20:36)
--- NOTE | 2020-09-10 13:08 | P.PN ---
Subjective Date of Service: 09/10/20 Chief Complaint: Cerda virus pneumonia Subjective: Improving (Slowly improving. Currently on 5 liters/minute.) Physical Examination - Vital Signs Temperature: 98.7 F Blood Pressure: 102/63 Pulse: 66 Respirations: 30 Pulse Ox (%): 92 - Studies Microbiology Data (last 24 hrs): 09/04/20 09:00 Blood - Blood Aerobic Blood Culture - Final Staph Hominis 09/04/20 09:00 Blood - Blood Blood Culture Gram Stain - Final 09/04/20 09:00 Blood - Blood Anaerobic Blood Culture - Final No growth in 5 days. Medications List Reviewed: Yes Assessment & Plan Discharge Plan: Home Plan to discharge in: 48 Hours Physician Review Additional Text: Physical Exam: Patient stable without significant distress. Heart: Regular rate. Lung: currently on 5 liters per minute. No significant distress noted GI: No abdominal distention noted EXT: Good range of motion to the upper lower extremities. No edema noted. Impression: Acute respiratory failure with hypoxia secondary to bilateral COVID pneumonia complicated with bacteremia, blood culture positive for Staph hominis Diabetes mellitus type 2 Thrombocytopenia likely related to above Plan: Acute respiratory failure with hypoxia secondary to bilateral COVID pneumonia complicated with bacteremia, blood culture positive for Staph hominisPatient continues to improve. Patient on Cipro to cover for bacteremia. Continue IV steroids, supplements. Respiratory to continue to wean off nasal cannula. Patient currently on 5 liters/minute. Hopefully if we can get below 4 L and patient ambulates without significant desaturations or difficulty then consider possible discharge as early as tomorrow. Encourage incentive spirometer. Continue prone positioning. Encourage ambulation. Will continue monitor patient closely. Diabetes mellitus type 2: A1c 6.9 Accu-Cheks in place. Continue with current medication and treatment. Thrombocytopenia likely related to above: May need to hold Eliquis. Check CBC. Time Spent Managing Pts Care (In Minutes): 55
[2020-09-10 13:51] LABS: Absolute Lymphocytes (CBC) 0.2 K/uL (0.7-4.9); Hematocrit 43.9 % (39.6-49.0); Lymphocytes % 4.6 % (15.3-44.8); MPV 10.5 fL (7.6-11.3); RBC Red Blood Cell Count 4.74 M/uL (4.33-5.43)
[2020-09-10] MEDS: ASCORBIC ACID 500 MG TABLET PO SCH ×2 (14:12→20:36)
[2020-09-10] MEDS: ACETAMINOPHEN 500 MG TAB PO PRN ×2 (14:14→20:34)
[2020-09-10] MEDS ORDERED: D50W 25 GM/50 ML VIAL IV PRN (14:49)
[2020-09-10 16:15] LABS: Blood Morphology Comment NOT SEEN (NOT SEEN); Platelet Estimate DECR
[2020-09-10] MEDS: THIAMINE HCL 100 MG TABLET PO SCH (20:35)
[2020-09-10] MEDS: MELATONIN 5 MG TABLET PO SCH (20:36)
[2020-09-11 04:23] LABS: Absolute Lymphocytes (CBC) 0.3 K/uL (0.7-4.9); Basophils % 0.2 % (0-1.3); Hematocrit 43.7 % (39.6-49.0); Lymphocytes % 8.7 % (15.3-44.8); MPV 10.8 fL (7.6-11.3); RBC Red Blood Cell Count 4.73 M/uL (4.33-5.43)
[2020-09-11 04:44] LABS: C-Reactive Protein 3.95 mg/L (<3.00); Ferritin 550.9 ng/mL (26-388)
[2020-09-11] MEDS: PANTOPRAZOLE 40MG TABLET PO SCH (06:18)
--- NOTE | 2020-09-11 08:51 | P.PN ---
Subjective Date of Service: 09/11/20 Chief Complaint: Cerda virus pneumonia Subjective: Improving (Improving oxygen saturation is better he will feels better) Review of Systems General: Weakness Respiratory: Shortness of Breath Physical Examination - Vital Signs Temperature: 98.7 F Blood Pressure: 100/63 Pulse: 57 Respirations: 20 Pulse Ox (%): 93 - Studies Medications List Reviewed: Yes Assessment & Plan - Problems (Diagnosis) (1) Pneumonia due to 2019 novel coronavirus Current Visit: Yes Status: Acute Plan: Patient is in improving continue to wean oxygen possible discharge currently on 5 L nasal cannula oxygen blood cultures most likely contaminant he remains afebrile in Dc antibiotic
[2020-09-11] MEDS: METFORMIN HCL 500 MG TAB PO SCH ×2 (09:24→16:57)
[2020-09-11] MEDS: ZINC SULFATE 220 MG CAP PO SCH (09:24)
[2020-09-11] MEDS: APIXABAN 5 MG TABLET PO SCH (09:24)
[2020-09-11] MEDS: ASCORBIC ACID 500 MG TABLET PO SCH ×3 (09:24→20:43)
[2020-09-11] MEDS: THIAMINE HCL 100 MG TABLET PO SCH ×2 (09:24→20:43)
[2020-09-11] MEDS: CIPROFLOXACIN HCL 500 MG TAB PO SCH ×2 (09:24→20:43)
[2020-09-11] MEDS: VITAMIN D 1000 UNIT TAB PO SCH (09:25)
[2020-09-11] MEDS: FAMOTIDINE 20 MG TAB PO SCH ×2 (09:25→20:43)
[2020-09-11] MEDS: METHYLPREDNISOLONE 40 MG INJ IV SCH (09:25)
[2020-09-11] MEDS: LORATADINE 10 MG TAB PO SCH (09:25)
[2020-09-11] MEDS: GLIMEPIRIDE 2 MG TABLET PO SCH ×2 (09:25→20:43)
[2020-09-11] MEDS: GUAIFENESIN/CODEINE 5ML UCUP PO PRN ×2 (14:42→20:42)
--- NOTE | 2020-09-11 17:22 | P.PN ---
Subjective Date of Service: 09/11/20 Chief Complaint: Cerda virus pneumonia Subjective: Improving Physical Examination - Vital Signs Temperature: 97.6 F Blood Pressure: 92/58 Pulse: 74 Respirations: 22 Pulse Ox (%): 87 - Studies Medications List Reviewed: Yes Assessment & Plan Discharge Plan: Home Plan to discharge in: 24 Hours Physician Review Additional Text: Physical Exam: Patient stable without significant distress. Heart: Regular rate. Lung: currently on 5 liters per minute. No significant distress noted GI: No abdominal distention noted EXT: Good range of motion to the upper lower extremities. No edema noted. Impression: Acute respiratory failure with hypoxia secondary to bilateral COVID pneumonia complicated with bacteremia, blood culture positive for Staph hominis Diabetes mellitus type 2 Thrombocytopenia likely related to above Plan: Acute respiratory failure with hypoxia secondary to bilateral COVID pneumonia complicated with bacteremia, blood culture positive for Staph hominis: Patient continues to improve. Patient on Cipro to cover for bacteremia. Continue IV steroids, supplements. Respiratory to continue to wean off nasal cannula. Patient currently on 5 liters/minute. Will have nurse ambulate patient along with physical therapy. Hopefully if we can get below 4 L and patient ambulates without significant desaturations or difficulty then consider possible discharge as early as tomorrow. Encourage incentive spirometer. Continue prone positioning. Encourage ambulation. Will continue monitor patient closely. Diabetes mellitus type 2: A1c 6.9 Accu-[address]. Continue with current medication and treatment. Thrombocytopenia likely related to above: Continue to hold Eliquis. Time Spent Managing Pts Care (In Minutes): 55
[2020-09-11] MEDS: MELATONIN 5 MG TABLET PO SCH (20:43)
[2020-09-11] MEDS: METHYLPREDNISOLONE 125 MG INJ IV SCH (20:44)
[2020-09-12 04:42] LABS: Absolute Lymphocytes (CBC) 0.3 K/uL (0.7-4.9); Basophils % 0.2 % (0-1.3); Hematocrit 43.1 % (39.6-49.0); Lymphocytes % 7.3 % (15.3-44.8); MPV 10.1 fL (7.6-11.3); RBC Red Blood Cell Count 4.66 M/uL (4.33-5.43)
[2020-09-12 05:12] LABS: BUN Blood Urea Nitrogen 28 mg/dL (7-18); Bicarbonate 32 mmol/L (21-32); Ferritin 534.4 ng/mL (26-388); Glucose Level 224 mg/dL (74-106); Potassium 5.1 mmol/L (3.5-5.1); Sodium Level 138 mmol/L (136-145)
[2020-09-12 05:20] LABS: C-Reactive Protein < 2.90 mg/L (<3.00)
[2020-09-12] MEDS: VITAMIN D 1000 UNIT TAB PO SCH (07:41)
[2020-09-12] MEDS: GUAIFENESIN/CODEINE 5ML UCUP PO PRN ×2 (07:42→19:57)
[2020-09-12] MEDS: ASCORBIC ACID 500 MG TABLET PO SCH ×3 (07:42→19:58)
[2020-09-12] MEDS: ASPIRIN EC 81 MG TAB PO SCH (07:43)
[2020-09-12] MEDS: METFORMIN HCL 500 MG TAB PO SCH ×2 (07:43→16:12)
[2020-09-12] MEDS: CIPROFLOXACIN HCL 500 MG TAB PO SCH ×2 (07:43→19:58)
[2020-09-12] MEDS: ACETAMINOPHEN 500 MG TAB PO PRN (07:43)
[2020-09-12] MEDS: FAMOTIDINE 20 MG TAB PO SCH ×2 (07:44→19:58)
[2020-09-12] MEDS: ZINC SULFATE 220 MG CAP PO SCH (07:44)
[2020-09-12] MEDS: GLIMEPIRIDE 2 MG TABLET PO SCH ×2 (07:44→19:58)
[2020-09-12] MEDS: THIAMINE HCL 100 MG TABLET PO SCH ×2 (07:44→19:58)
[2020-09-12] MEDS: LORATADINE 10 MG TAB PO SCH (07:45)
[2020-09-12] MEDS: METHYLPREDNISOLONE 125 MG INJ IV SCH ×2 (07:45→19:57)
[2020-09-12 13:25] VITALS: BMI 23.3
--- NOTE | 2020-09-12 15:31 | P.PN ---
Subjective Date of Service: 09/12/20 Chief Complaint: Shortness of breath Subjective: Improving Physical Examination - Vital Signs Temperature: 97.4 F Blood Pressure: 102/64 Pulse: 66 Respirations: 19 Pulse Ox (%): 90 - Studies Medications List Reviewed: Yes Assessment & Plan Discharge Plan: Home Plan to discharge in: 24 Hours Physician Review Additional Text: Physical Exam: Patient stable without significant distress. Heart: Regular rate. Lung: currently on 4-5 liters per minute. No significant distress noted GI: No abdominal distention noted EXT: Good range of motion to the upper lower extremities. No edema noted. Impression: Acute respiratory failure with hypoxia secondary to bilateral COVID pneumonia complicated with bacteremia, blood culture positive for Staph hominis Diabetes mellitus type 2 Thrombocytopenia likely related to above Plan: Acute respiratory failure with hypoxia secondary to bilateral COVID pneumonia complicated with bacteremia, blood culture positive for Staph hominis: Patient continues to improve. Will have respiratory decreased to 4 L and see how he does. Will consider discharge as early as later today if able to ambulate and do well without significant desaturations on 4 L. Encourage incentive spirometer. Continue prone positioning. Encourage ambulation. Will continue monitor patient closely. Diabetes mellitus type 2: A1c 6.9 Accu-[address] Continue with current medication and treatment. Thrombocytopenia likely related to above: Continue to hold Eliquis. Time Spent Managing Pts Care (In Minutes): 55
[2020-09-12] MEDS: MELATONIN 5 MG TABLET PO SCH (19:58)
[2020-09-13 05:10] LABS: Absolute Lymphocytes (CBC) 0.2 K/uL (0.7-4.9); Basophils % 0.1 % (0-1.3); Hematocrit 42.9 % (39.6-49.0); Lymphocytes % 5.6 % (15.3-44.8); MPV 10.7 fL (7.6-11.3); RBC Red Blood Cell Count 4.62 M/uL (4.33-5.43)
[2020-09-13] MEDS: ASPIRIN EC 81 MG TAB PO SCH (08:53)
[2020-09-13] MEDS: FAMOTIDINE 20 MG TAB PO SCH (08:53)
[2020-09-13] MEDS: METHYLPREDNISOLONE 125 MG INJ IV SCH (08:53)
[2020-09-13] MEDS: VITAMIN D 1000 UNIT TAB PO SCH (08:53)
[2020-09-13] MEDS: THIAMINE HCL 100 MG TABLET PO SCH (08:54)
[2020-09-13] MEDS: ASCORBIC ACID 500 MG TABLET PO SCH ×2 (08:54→14:52)
[2020-09-13] MEDS: LORATADINE 10 MG TAB PO SCH (08:54)
[2020-09-13] MEDS: METFORMIN HCL 500 MG TAB PO SCH (08:54)
[2020-09-13] MEDS: GLIMEPIRIDE 2 MG TABLET PO SCH (08:54)
[2020-09-13] MEDS: CIPROFLOXACIN HCL 500 MG TAB PO SCH (08:54)
[2020-09-13] MEDS: ZINC SULFATE 220 MG CAP PO SCH (08:54)
[2020-09-13 10:13] VITALS: O2SAT 90
[2020-09-13] MEDS: GUAIFENESIN/CODEINE 5ML UCUP PO PRN (11:35)
--- NOTE | 2020-09-13 13:17 | P.DS ---
Admission Date: 09/04/20 Discharge Date: 09/13/20 Primary Care Provider: None Disposition: ROUTINE DISCHARGE Discharge Condition: GOOD Reason for Admission: Shortness of breath Consultations: Pulmonary-Dr. Casey Procedures: CXR: FINDINGS: Portable technique limits examination quality. Moderate bilateral pulmonary opacities, greater on the left, demonstrate moderate worsening since the comparative study. The heart is normal in size. No displaced fractures. IMPRESSION: Moderate worsening of lung aeration is seen, particularly on the le ft. Impression: Acute respiratory failure with hypoxia secondary to bilateral COVID pneumonia complicated with bacteremia, blood culture positive for Staph hominis Diabetes mellitus type 2 Thrombocytopenia likely related to above GERD Allergic rhinitis Brief History of Present Illness: 60-year-old gentleman who came to the hospital with difficulty breathing. Patient was short of breath and having a persistent cough. Patient has multiple family members who have been diagnosed with COVID-19 pneumonia. Patient was concerned so he came to the hospital. Patient oxygen saturations were 82% on room air. Patient was tested and patient results showed he had COVID-19. Patient was admitted for further evaluation and treatment. Hospital Course: Patient presented with shortness of breast secondary to acute respiratory failure with hypoxia secondary to bilateral COVID pneumonia complicated with bacteremia. His hospital stay was prolonged. Blood cultures were positive for Staphylococcus hominis. Medications were adjusted during the course of his stay. Patient was seen and evaluated by pulmonology. Patient was treated with IV Solu-Medrol, ivermectin, remdesivir, and supplementation. His condition improved. At discharge patient requires oxygen. Patient able to ambulate appropriately with oxygen without significant desaturations or shortness of breath. At discharge home oxygen will be arranged to maintain sats above 93%. Patient currently on 3-4 L per nasal cannula. Patient will need to limit his activities. At discharge patient will continue with prednisone 20 mg 1 pill twice daily for 7 days then 1 pill once daily for 7 days. The patient will continue with Pro air 2 puffs 3 times a day as needed for shortness of breath. The patient will also continue with vitamin supplementation including vitamin-C 500 mg 3 times a day, vitamin-D 2000 units daily, thiamine 100 mg 1 pill twice daily, melatonin 5 mg at bedtime, and zinc 220 mg daily. For his bacteremia the patient will continue with Cipro 500 mg 1 pill twice daily for 8 days. Repeat blood cultures were done prior to discharge. This can be followed up by his PCP or pulmonology. Patient will continue with CDC guidelines on COVID education and isolation. Patient will continue with incentive spirometer, proningn and mild ambulation. Patient will continue with face could mask use, hand washing, and social distancing. Recommend follow up with pulmonology in 1 week. Pulmonology will further adjust his oxygen requirements. Patient with diabetes mellitus type 2. His hemoglobin A1c was 6.9. Medications were adjusted prior to discharge. At discharge she will continue with glimepiride 2 mg 1 pill twice daily and metformin 1000 mg 1 pill twice daily. Recommend to maintain blood sugar less than 140 fasting and less than 200 after meals. Further adjustment can be done by his PCP. Patient had some thrombocytopenia likely related to the bacteremia and infectious process. Patient had been on Eliquis. This was discontinued. At discharge patient will not require any anti coagulation therapy or aspirin. Recommend to recheck lab-CBC in 1-2 weeks to monitor resolution. If this persist then his PCP can further address and evaluate. Patient with GERD. At discharge patient will continue with Prilosec 20 mg daily. Patient with her allergic rhinitis. At discharge patient will continue with Claritin 10 mg daily. Vital Signs/Physical Exam: Temp Pulse Resp BP Pulse Ox 96.8 F 72 20 96/58 L 90 L 09/13/20 08:00 09/13/20 08:00 09/13/20 08:00 09/13/20 08:00 09/13/20 08:00 General: Alert, In no apparent distress, Oriented x3, Cooperative HEENT: Atraumatic Neck: Supple Respiratory: Clear to auscultation bilaterally, Normal air movement Cardiovascular: Normal pulses, Regular rate/rhythm Gastrointestinal: Normal bowel sounds, No masses, No rebound, No guarding Neurological: Normal speech, Normal strength at 5/5 x4 extr, Normal tone, Normal affect Laboratory Data at Discharge: WBC 3.90 K/uL (4.3-10.9) L 09/13/20 05:00 Hgb 14.4 g/dL (13.6-17.9) 09/13/20 05:00 Hct 42.9 % (39.6-49.0) 09/13/20 05:00 Plt Count 74 K/uL (152-406) L 09/13/20 05:00 PT 14.4 SECONDS (9.5-12.5) H 09/05/20 04:33 INR 1.22 09/05/20 04:33 APTT 31.8 SECONDS (24.3-36.9) 09/05/20 04:33 Sodium 138 mmol/L (136-145) 09/12/20 04:24 Potassium 5.1 mmol/L (3.5-5.1) 09/12/20 04:24 BUN 28 mg/dL (7-18) H 09/12/20 04:24 Creatinine 0.78 mg/dL (0.55-1.3) 09/12/20 04:24 Glucose 224 mg/dL (74-106) H 09/12/20 04:24 Total Bilirubin 0.7 mg/dL (0.2-1.0) 09/05/20 04:33 AST 40 U/L (15-37) H 09/05/20 04:33 ALT 27 U/L (12-78) 09/05/20 04:33 Alkaline Phosphatase 72 U/L (45-117) 09/05/20 04:33 Triglycerides 85 mg/dL (<150) 09/05/20 04:33 Cholesterol 132 mg/dL (<200) 09/05/20 04:33 HDL Cholesterol 31 mg/dL (40-60) L 09/05/20 04:33 Cholesterol/HDL Ratio 4.26 09/05/20 04:33 Lipase 70 U/L (73-393) L 09/04/20 09:00 Home Medications: Glimepiride 1 tab PO BID 09/04/20 Loratadine [Claritin*] 10 mg PO DAILY 09/04/20 Omeprazole 1 tab PO DAILY 09/04/20 Albuterol Sulfate [Proair Hfa] 2 puff IH TID PRN #1 hfa.aer.ad 09/13/20 Ascorbic Acid [Vitamin C*] 500 mg PO TID #90 tablet 09/13/20 Cholecalciferol (Vitamin D3) [Vitamin D 1000 Iu Tab*] 2,000 unit PO DAILY #60 tab 09/13/20 Ciprofloxacin HCl [Cipro 500 MG Tablet] 500 mg PO BID #16 tab 09/13/20 Lactobacillus Acidophilus [Acidophilus Lactobacilli] 1 each PO TID #30 capsule 09/13/20 Melatonin 5 mg PO BEDTIME #30 tablet 09/13/20 Metformin HCl 1,000 mg PO BID #60 tablet 09/13/20 Thiamine HCl [Vitamin B-1*] 100 mg PO BID #60 tablet 09/13/20 Zinc Sulfate [Zinc Sulfate*] 220 mg PO DAILY #30 cap 09/13/20 New Medications: Lactobacillus Acidophilus [Acidophilus Lactobacilli] 1 each PO TID #30 capsule Ciprofloxacin HCl [Cipro 500 MG Tablet] 500 mg PO BID #16 tab Melatonin 5 mg PO BEDTIME #30 tablet Metformin HCl 1,000 mg PO BID #60 tablet Albuterol Sulfate [Proair Hfa] 2 puff IH TID PRN #1 hfa.aer.ad PRN Reason: Shortness Of Breath Thiamine HCl [Vitamin B-1*] 100 mg PO BID #60 tablet Ascorbic Acid [Vitamin C*] 500 mg PO TID #90 tablet Cholecalciferol (Vitamin D3) [Vitamin D 1000 Iu Tab*] 2,000 unit PO DAILY #60 tab Zinc Sulfate [Zinc Sulfate*] 220 mg PO DAILY #30 cap Physician Discharge Instructions: Follow up with PCP in 1 week to follow up this hospitalization. Patient presented with shortness of breast secondary to acute respiratory failure with hypoxia secondary to bilateral COVID pneumonia complicated with bacteremia. His hospital stay was prolonged. Blood cultures were positive for Staphylococcus hominis. Medications were adjusted during the course of his stay. Patient was seen and evaluated by pulmonology. Patient was treated with IV Solu-Medrol, ivermectin, remdesivir, and supplementation. His condition improved. At discharge patient requires oxygen. Patient able to ambulate appropriately with oxygen without significant desaturations or shortness of breath. At discharge home oxygen will be arranged to maintain sats above 93%. Patient currently on 3-4 L per nasal cannula. Patient will need to limit his activities. At discharge patient will continue with prednisone 20 mg 1 pill twice daily for 7 days then 1 pill once daily for 7 days. The patient will continue with Pro air 2 puffs 3 times a day as needed for shortness of breath. The patient will also continue with vitamin supplementation including vitamin-C 500 mg 3 times a day, vitamin-D 2000 units daily, thiamine 100 mg 1 pill twice daily, melatonin 5 mg at bedtime, and zinc 220 mg daily. For his bacteremia the patient will continue with Cipro 500 mg 1 pill twice daily for 8 days. Repeat blood cultures were done prior to discharge. This can be followed up by his PCP or pulmonology. Patient will continue with CDC guidelines on COVID education and isolation. Patient will continue with incentive spirometer, proningn and mild ambulation. Patient will continue with face could mask use, hand washing, and social distancing. Recommend follow up with pulmonology in 1 week. Pulmonology will further adjust his oxygen requirements. Patient with diabetes mellitus type 2. His hemoglobin A1c was 6.9. Medications were adjusted prior to discharge. At discharge she will continue with glimepiride 2 mg 1 pill twice daily and metformin 1000 mg 1 pill twice daily. Recommend to maintain blood sugar less than 140 fasting and less than 200 after meals. Further adjustment can be done by his PCP. Patient had some thrombocytopenia likely related to the bacteremia and infectious process. Patient had been on Eliquis. This was discontinued. At discharge patient will not require any anti coagulation therapy or aspirin. Recommend to recheck lab-CBC in 1-2 weeks to monitor resolution. If this persist then his PCP can further address and evaluate. Patient with GERD. At discharge patient will continue with Prilosec 20 mg daily. Patient with her allergic rhinitis. At discharge patient will continue with Claritin 10 mg daily. Diet: AHA Activity: Ad blanche Followup: Unknown,U [Primary Care Provider] - Time spent managing pt's care (in minutes): 55
[2020-09-13 14:05] VITALS: BP 97/55; TEMP 97.5
== END 2020-09-13 16:30 | disposition home or self-care (01) | DRG 177 ==
LOC: ER 07:41 → ERHOLD 12:10 → 4TH 15:53
PROVIDERS: ADMIT Hospitalist; ATTEND Family Medicine
PROC: XW033E5 Introduction of Remdesivir Anti-infective into Peripheral Vein, Percutaneous Approach, New Technology Group 5 (ICD-10-PCS; principal; 2020-09-08)
DX: U07.1 COVID-19 (principal); J12.82 Pneumonia due to coronavirus disease 2019; J96.01 Acute respiratory failure with hypoxia; R78.81 Bacteremia; E11.65 Type 2 diabetes mellitus with hyperglycemia; D69.6 Thrombocytopenia, unspecified; J30.9 Allergic rhinitis, unspecified; K21.9 Gastro-esophageal reflux disease without esophagitis; B95.7 Other staphylococcus as the cause of diseases classified elsewhere; Z79.84 Long term (current) use of oral hypoglycemic drugs; Z79.899 Other long term (current) drug therapy
CPT/HCPCS: 36415; 71045; 80048; 80053; 80061; 80076; 80202; 81003; 81015; 82728; 82947; 83036; 83605; 83690; 84145; 84484; 85025; 85379; 85610; 85730; 86140; 87040; 87070; 87077; 87081; 87086; 87088; 87186; 87205; 87804; 93005; 94010; 94760; 96374; 96375; 99285; J0696; J1100; J2920; J2930; J3370; J7040; J7050